=== PATIENT | male | born 1980 | race Hispanic/Latino ===

== ENCOUNTER 2022-06-25 14:46 | Emergency (ER) | payer SELFPAY ==
[2022-06-25] MEDS ORDERED: TORAdol 30 mg Injection IV ONE (15:09)
[2022-06-25] MEDS ORDERED: Sodium Chloride 0.9% 1000 ML 1,000 ML IV STA (15:09)
[2022-06-25] MEDS ORDERED: Zofran 4 MG/2 ML VIAL IV ONE (15:09)
[2022-06-25 15:22] LABS: Absolute Neutrophil Ct (ANC) 2.66 x10^3/uL (1.4-6.9); BASOPHIL % 0.3 % (0.0-0.4); Basophil (Absolute #) 0.02 x10^3/uL (0-0.4); Eosinophil (Absolute #) 0.24 x10^3/uL (0-0.5); Hematocrit 40.6 % (42-50); Hemoglobin 13.4 g/dL (12.5-18.0); IMMATURE GRAN # 0.01 x10^3u/L (0.00-0.03); IMMATURE GRAN % 0.2 % (0.00-0.4); Lymphocyte (Absolute #) 2.48 x10^3/uL (1.0-4.6); Lymphocytes % 41.3 % (24.0-44.0); Mean Cell Volume 93.5 fL (78-100); Mean Corpuscular Hemoglobin 30.9 pg (26-32); Mean Platelet Volume 11.4 fL (7.5-11.0); Neutrophil % 44.2 % (36.0-66.0); Platelet Count 146 x10^3/uL (150-450); Red Blood Count 4.34 x10^6/uL (4.1-5.6); Red Cell Distribution Width 12.7 % (11.5-14.0)
[2022-06-25 15:26] LABS: Appearance Clear (Clear); Leukocyte Esterase Negative (Negative); Nitrite Negative (Negative); Ph 6.5 (4.6-8.0); Specific Gravity 1.025 (1.005-1.030)
[2022-06-25 15:27] LABS: Bilirubin Negative (Negative); Blood Negative (Negative); Glucose, Urine Negative (Negative); Ketones Negative (Negative); Protein,Urine Dip Negative (Negative); Urobilinogen 0.2 mg/dL (0.2)
[2022-06-25] MEDS ORDERED: Zofran 4 MG/2 ML VIAL ONE (15:30)
[2022-06-25] MEDS ORDERED: Sodium Chloride 0.9% 1000 ML 1,000 ML ONE (15:31)
[2022-06-25] MEDS ORDERED: TORAdol 30 mg Injection ONE (15:31)
[2022-06-25 15:33] LABS: ALKALINE PHOSPHATASE 73 U/L (38-126); ANION GAP 14.1 MEQ/L (5-15); BLOOD UREA NITROGEN 17 mg/dL (9-20); CHLORIDE 105 mmol/L (98-107); Calcium 8.5 mg/dL (8.4-10.2); Carbon Dioxide 23 mmol/L (22-30); Creatinine 1 0.76 mg/dL (0.66-1.25); EST GLOMERULAR FILTRATION RATE > 60.0 ML/MIN; Glucose 94 mg/dL (74-106); LIPASE 42 U/L (23-300); Potassium 3.6 mmol/L (3.5-5.1); SGOT/AST 93 U/L (17-59); SGPT/ALT 102 U/L (0-50); SODIUM 139 mmol/L (137-145)
--- NOTE | 2022-06-25 15:35 | ERPHSYRPT ---
- History of Present Illness Time Seen by Provider: 06/25/22 14:58 Historian: patient Exam Limitations: language barrier Patient Subjective Stated Complaint: PT states "I have had pain in my left side and lower abodmen and it goes into my back. I have also been a little dizzy." Triage Nursing Assessment: pt presented alert and oriented X 3, skin pwd. Pt ambulates with a slow gait, pt speaks yakut only. PT guarding his left lower abdomen. Physician History: 42 years old male presented in the ER with chief complaint of left flank pain since morning with associated nausea but no vomiting. Reports having some burn ing urination without hematuria. Pain is radiating to left groin, aggravated with movements and palpation and no significant relieving factors. No history of kidney stones. Timing/Duration: today, sudden, worse Activities at Onset: rest Quality: sharpness Abdominal Pain Onset Location: flank Pain Radiation: groin Severity of Pain-Max: severe Severity of Pain-Current: severe Modifying Factors: Worsens With: movement, palpation Associated Symptoms: nausea, No vomiting Previous symptoms: no prior history Allergies/Adverse Reactions: No Known Drug Allergies Allergy (Verified 06/25/22 15:02) Hx Tetanus, Diphtheria Vaccination/Date Given: No Hx Influenza Vaccination/Date Given: No Hx Pneumococcal Vaccination/Date Given: No Immunizations Up to Date: Yes Travel Risk - International Travel Have you traveled outside of the country in past 3 weeks: No - Coronavirus Screening Are you exhibiting any of the following symptoms?: No Close contact with a COVID-19 positive Pt in past 14-21 Days: No - Vaccine Status Have you recieved a Covid-19 vaccination: Yes Kitchen Lead: Unknown - Vaccination Dates Dates if Unknown: 2020 - Review of Systems Constitutional: No Symptoms Eyes: No Symptoms Ears, Nose, & Throat: No Symptoms Respiratory: No Symptoms Cardiac: No Symptoms Abdominal/Gastrointestinal: Abdominal Pain Genitourinary Symptoms: Dysuria Musculoskeletal: No Symptoms Neurological: No Symptoms Endocrine: No Symptoms - Past Medical History Pertinent Past Medical History: No - Past Surgical History Past Surgical History: No - Social History Smoking Status: Former smoker Exposure to second hand smoke: No Drug Use: none Patient Lives Alone: No - Nursing Vital Signs Nursing Vital Signs: Initial Vital Signs Temperature 97.6 F 06/25/22 14:55 Pulse Rate 71 06/25/22 14:55 Respiratory Rate 20 06/25/22 14:55 Blood Pressure 162/106 06/25/22 14:55 O2 Sat by Pulse Oximetry 100 06/25/22 14:55 Pain Scale Pain Intensity 5 - Physical Exam General Appearance: no apparent distress, alert Eye Exam: PERRL/EOMI Ears, Nose, Throat Exam: normal ENT inspection Neck Exam: normal inspection, full range of motion Respiratory Exam: normal breath sounds, lungs clear Cardiovascular Exam: regular rate/rhythm, normal heart sounds Gastrointestinal/Abdomen Exam: soft, normal bowel sounds, tenderness (Left flank) Male Genitalia Exam: normal genitalia, No hernia, No testicular tenderness, No testicular mass Back Exam: normal inspection, normal range of motion, CVA tenderness (Left) Extremity Exam: normal inspection, normal range of motion Neurologic Exam: alert, oriented x 3, cooperative Skin Exam: normal color SpO2 Interpretation: normal SpO2: 100 O2 Delivery: Room Air Ordered Tests: Active Orders 24 hr Category Date Time Status IV Insertion STAT Care 06/25/22 15:09 Active NPO (ED) STAT Care 06/25/22 15:09 Active ABDOMEN AND PELVIS W/0 CONTRAS [CT] Stat Exams 06/25/22 15:09 Completed CBC W DIFF Stat Lab 06/25/22 15:09 Completed CMP Stat Lab 06/25/22 15:20 Completed LIPASE Stat Lab 06/25/22 15:20 Completed UA W/RFX UR CULTURE Stat Lab 06/25/22 15:20 Completed Medication Summary Discontinued Medications Generic Name Dose Route Start Last Admin Trade Name Freq PRN Reason Stop Dose Admin Sodium Chloride 1,000 mls @ 999 mls/hr 06/25/22 15:09 06/25/22 16:40 Sodium Chloride 0.9% 1000 Ml IV 06/25/22 16:09 Infused .Q1H1M STA Infusion Sodium Chloride Confirm 06/25/22 15:31 Sodium Chloride 0.9% 1000 Ml Administered 06/25/22 15:32 Dose 1,000 mls @ ud .ROUTE .STK-MED ONE Ketorolac Tromethamine 30 mg 06/25/22 15:09 06/25/22 15:33 Ketorolac Tromethamine 30 Mg/Ml Inj IV 06/25/22 15:10 30 mg STAT ONE Administration Ketorolac Tromethamine Confirm 06/25/22 15:31 Ketorolac Tromethamine 30 Mg/Ml Inj Administered 06/25/22 15:32 Dose 30 mg .ROUTE .STK-MED ONE Ondansetron HCl 4 mg 06/25/22 15:09 06/25/22 15:34 Ondansetron Hcl 4 Mg/2 Ml Vial IV 06/25/22 15:10 4 mg STAT ONE Administration Ondansetron HCl Confirm 06/25/22 15:30 Ondansetron Hcl 4 Mg/2 Ml Vial Administered 06/25/22 15:31 Dose 4 mg .ROUTE .STK-MED ONE Lab/Rad Data: Laboratory Result Diagrams 06/25/22 15:06/25/22 15:20 Laboratory Results 06/25/22 06/25/22 06/25/22 Range/Units 15:20 15:20 15:09 WBC 6.0 (4.0-10.5) x10^3/uL RBC 4.34 (4.1-5.6) x10^6/uL Hgb 13.4 (12.5-18.0) g/dL Hct 40.6 L (42-50) % MCV 93.5 (78-100) fL MCH 30.9 (26-32) pg MCHC 33.0 (32-36) g/dL RDW 12.7 (11.5-14.0) % Plt Count 146 L (150-450) x10^3/uL MPV 11.4 H (7.5-11.0) fL Gran % 44.2 (36.0-66.0) % Immature Gran % (Auto) 0.2 (0.00-0.4) % Nucleat RBC Rel Count 0.0 (0.00-0.1) % Eos # (Auto) 0.24 (0-0.5) x10^3/uL Immature Gran # (Auto) 0.01 (0.00-0.03) x10^3u/L Absolute Lymphs (auto) 2.48 (1.0-4.6) x10^3/uL Absolute Monos (auto) 0.60 (0.0-1.3) x10^3/uL Absolute Nucleated RBC 0.00 (0.00-0.01) x10^3u/L Lymphocytes % 41.3 (24.0-44.0) % Monocytes % 10.0 (0.0-12.0) % Eosinophils % 4.0 (0.00-5.0) % Basophils % 0.3 (0.0-0.4) % Absolute Granulocytes 2.66 (1.4-6.9) x10^3/uL Basophils # 0.02 (0-0.4) x10^3/uL Sodium 139 (137-145) mmol/L Potassium 3.6 (3.5-5.1) mmol/L Chloride 105 (98-107) mmol/L Carbon Dioxide 23 (22-30) mmol/L Anion Gap 14.1 (5-15) MEQ/L BUN 17 (9-20) mg/dL Creatinine 0.76 (0.66-1.25) mg/dL Estimated GFR > 60.0 ML/MIN Glucose 94 (74-106) mg/dL Calcium 8.5 (8.4-10.2) mg/dL Total Bilirubin 1.20 (0.2-1.3) mg/dL AST 93 H (17-59) U/L ALT 102 H (0-50) U/L Alkaline Phosphatase 73 (38-126) U/L Serum Total Protein 7.0 (6.3-8.2) g/dL Albumin 4.0 (3.5-5.0) g/dL Lipase 42 (23-300) U/L Urine Color Yellow (Yellow) Urine Appearance Clear (Clear) Urine pH 6.5 (4.6-8.0) Ur Specific Ullin 1.025 (1.005-1.030) Urine Protein Negative (Negative) Urine Glucose (UA) Negative (Negative) mg/dL Urine Ketones Negative (Negative) Urine Blood Negative (Negative) Urine Nitrite Negative (Negative) Urine Bilirubin Negative (Negative) Urine Urobilinogen 0.2 (0.2) mg/dL Ur Leukocyte Esterase Negative (Negative) U Hyaline Cast (Auto) NONE SEEN (0-2) /LPF Urine Microscopic RBC 0-2 (0-5) /HPF Urine Microscopic WBC 0-2 (0-5) /HPF Ur Epithelial Cells None Seen (None Seen) /HPF Urine Bacteria None Seen (None Seen) /HPF Urine Culture Reflexed NO (NO) - Progress Progress: improved, re-examined Progress Note: 06/25/22 17:49 42 years old is evaluated for left flank pain with nausea since morning. Given fluids and symptomatic treatment with Toradol, on reevaluation his pain is almost completely resolved. Has normal white count, fairly unremarkable chemistries except for some elevated transaminases level but patient does not have any pain on the epigastric or right side, no UTI. Again CT abdomen pelvis without contrast which is negative for stone, diverticulitis, obstruction, perforation, pyelonephritis or any other acute findings. I do not know the exact cause of his pain but have ruled out all the major emergencies. Patient is stable, recommended Tylenol/ibuprofen and outpatient follow-up. Discussed signs symptoms of worsening needing return to ER which she seems understanding. Stable for discharge. 06/25/22 17:53 Counseled pt/family regarding: lab results, diagnosis, need for follow-up, rad results Medical Desision Making - Discussion of managment Agreed on:: Treatment plan, need for follow-up - Diagnostic Testing Diagnostic test were ordered, analyzed, and reviewed by me: Yes Radiological Interpretation: Reviewed by me - Risk of complications The pt has a mod risk of morbidity or mortality based on: Need for prescription drug management - Departure Departure Disposition: Home Clinical Impression: Left flank pain, Elevated transaminase level Condition: Stable Critical Care Time: No Referrals: DOCTOR,NO FAMILY [Primary Care Provider] - Follow up/PCP as directed ESTEPHANIA CHANDRA MD [ACTIVE STAFF] - Follow up with PCP 1 day Instructions: Flank Pain Additional Instructions: Take Tylenol/ibuprofen as needed. Drink plenty of fluids to keep yourself well- hydrated. Follow-up with primary care for reevaluation. Return to ER for worsening pain, intractable nausea vomiting, difficulty urination etc. Prescriptions: Ibuprofen 600 mg PO Q6HPRN PRN 10 Days #20 tablet PRN Reason: Pain
[2022-06-25 15:36] LABS: ADD URINE CULTURE? NO (NO); Bacteria None Seen /HPF (None Seen); Epithelial Cells None Seen /HPF (None Seen); Hyaline Casts NONE SEEN /LPF (0-2); RBC 0-2 /HPF (0-5); WBC 0-2 /HPF (0-5)
--- NOTE | 2022-06-25 16:12 | XRAY ---
Indication: Left flank pain. Multiple contiguous axial images obtained through the abdomen and pelvis without contrast. Comparison: None Lung bases demonstrates mild dependent atelectasis. Heart not enlarged. Noncontrasted stomach and bowel loops appear nonobstructed with normal appendix. No free fluid/air. Mild diffuse fatty liver. Remaining liver, gallbladder, pancreas, spleen, adrenal glands, kidneys, ureters, bladder, and aorta are unremarkable for noncontrast exam. Osseous structures intact. No ventral or inguinal hernias. Impression: Fatty liver. Remaining CT abdomen/pelvis without contrast exam is negative.
[2022-06-25 17:01] VITALS: PULSE 60
[2022-06-25 18:09] VITALS: BP 115/83; O2SAT 99
== END 2022-06-25 18:09 | disposition home or self-care (01) ==
LOC: ED 14:46
DX: R10.32 Left lower quadrant pain (principal); R74.01 Elevation of levels of liver transaminase levels; Z20.828 Contact with and (suspected) exposure to other viral communicable diseases
CPT/HCPCS: 36000; 36415; 74176; 80053; 81001; 83690; 85025; 96360; 96374; 96375; 99284; J1885; J2405